=== PATIENT | male | born 1960 | race Caucasian/White ===

== ENCOUNTER 2018-03-28 23:15 | Emergency (ER) | payer OTHER ==
[~2018-03-28] VITALS: Ht 182.9 cm; Wt 77.1 kg
[~2018-03-28 23:15] MED LIST: (None)20 M1 PO; ALBU90I INH; ALBU90OI INH; AMOCLA875 PO; AMOX500 PO; AZIT250 PO; BENZ100A PO; BUPR100ER PO; Bactrim Ds Tab1 EACH PO; CYCL10 PO; Crutch1 EACH MISC; DIAZ5 PO; FLUO10 PO; HYDACE10B PO; HYDACE5 PO; HYDACE5325 PO; Keflex500 MG PO; LORA1 PO; META800 PO; Mucinex600 MG PO; NAPR500 PO; NAPR550 PO; OXYACE5T PO; OXYACE7.5T PO; PARO10 PO; PRED10 PO; PROM25 PO; Percocet 5-3251 EACH PO; Prednisone20 MG PO; RXCYCL10 PO; RXHYDACE PO; RXNAPNA550 PO; SPACE CHAMBER1 EACH MC; Zithromax250 MG PO
[2018-03-28] MEDS ORDERED: ALBU2.5V5 NEB (23:57)
[2018-03-28] MEDS ORDERED: FLUO10 PO (23:57)
[2018-03-28] MEDS ORDERED: Chantix1 EACH (23:58)
[2018-03-28] MEDS ORDERED: Ventolin/Prove6.7 GM (23:58)
== END 2018-03-29 00:35 | disposition home or self-care (01) ==
LOC: ER 23:15
DX: S40.011A Contusion of right shoulder, initial encounter (principal); W19.XXXA Unspecified fall, initial encounter; Z79.899 Other long term (current) drug therapy; J44.9 Chronic obstructive pulmonary disease, unspecified; F17.210 Nicotine dependence, cigarettes, uncomplicated
CPT/HCPCS: 73030; 96372; 99283-25; J1885

== ENCOUNTER 2021-05-12 12:16 | Emergency (ER) | payer MEDICARE, OTHER ==
[~2021-05-12] VITALS: Ht 180.3 cm; Wt 72.6 kg
[~2021-05-12 12:16] MED LIST changes: +ALBU2.5V5 NEB; +Chantix1 EACH; +Ventolin/Prove6.7 GM
[2021-05-12 13:05] LABS: BASOPHILS ABSOLUTE AUTO 0.04 K/mm3 (0.00-0.23); BASOPHILS PERCENT AUTO 0 % (0-2); EOSINOPHILS PERCENT AUTO 2 % (0-6); Hematocrit 44.2 % (37.0-53.0); Hemoglobin 14.9 g/dL (13.5-17.5); IMMATURE GRAN ABSOLUTE AUTO 0.04 K/mm3 (0.00-0.10); IMMATURE GRAN PERCENT AUTO 0 % (0-1); LYMPHOCYTES ABSOLUTE AUTO 1.12 K/mm3 (0.84-5.20); LYMPHOCYTES PERCENT AUTO 8 % (21-46); MONOCYTES ABSOLUTE AUTO 1.26 K/mm3 (0.16-1.47); MONOCYTES PERCENT AUTO 9 % (4-13); Mean Corpuscular HGB 32.4 pg (26.0-34.0); Mean Corpuscular HGB Conc 33.7 g/dL (31.5-36.5); Mean Corpuscular Volume 96 fL (80-100); Mean Platelet Volume 8.7 fL (9.1-12.4); NEUTROPHILS ABSOLUTE AUTO 10.83 K/mm3 (1.96-9.15); NEUTROPHILS PERCENT AUTO 80 % (41-73); Platelet Count 362 K/mm3 (150-400); RDW Coefficient Variation 12.3 % (11.7-14.2); RDW Standard Deviation 43.7 fL (35.1-46.3); White Blood Cell Count 13.59 K/mm3 (4.00-11.30)
[2021-05-12 13:31] LABS: Alanine Aminotransfer (ALT/SGP 25 U/L (12-78); Albumin, Blood 2.9 g/dL (3.4-5.0); Albumin/Globulin Ratio 0.7 (0.8-1.8); Alk Phos 114 U/L (50-136); Anion Gap 6 mmol/L (6-16); Aspartate Aminotrans (AST/SGOT 16 U/L (12-37); Bilirubin, Total 0.5 mg/dL (0.1-1.0); Blood Urea Nitrogen 15 mg/dL (8-24); Bun/Creatinine Ratio 26.8 (12.0-20.0); CO2, Blood 29 mmol/L (21-32); Calcium, Blood 9.1 mg/dL (8.5-10.1); Chloride, Blood 101 mmol/L (98-108); Creatinine, Blood 0.56 mg/dL (0.60-1.20); Globulin, Blood 4.2 g/dL (2.2-4.0); Glomerular Filtration Rate >60 (60-); Glucose, Blood 122 mg/dL (70-99); Potassium, Blood 3.6 mmol/L (3.5-5.5); Sodium, Blood 136 mmol/L (136-145); Total Protein, Blood 7.1 g/dL (6.4-8.2)
[2021-05-12 13:34] LABS: Influenza A, PCR NEGATIVE (NEGATIVE); Influenza B, PCR NEGATIVE (NEGATIVE); Resp Syncytial Virus, PCR NEGATIVE (NEGATIVE); SARS-Cov-2 (COVID-19) PCR, MMC NEGATIVE (NEGATIVE)
[2021-05-12] MEDS ORDERED: CEPH500 PO (16:18)
== END 2021-05-12 16:30 | disposition home or self-care (01) ==
LOC: ER 12:16
PROVIDERS: Physician Assistant
DX: J02.9 Acute pharyngitis, unspecified (principal); L30.9 Dermatitis, unspecified; L03.116 Cellulitis of left lower limb; L03.115 Cellulitis of right lower limb; Z20.822 Contact with and (suspected) exposure to COVID-19; F17.210 Nicotine dependence, cigarettes, uncomplicated; J44.9 Chronic obstructive pulmonary disease, unspecified
CPT/HCPCS: 0241U; 36415; 71046; 80053; 84484; 85025; 93005; 93010; 96374; 99284-25; A9270; J1100; J1885; J7030